=== PATIENT | female | born 1945 | race Caucasian/White ===

== ENCOUNTER 2019-11-19 18:32 | Emergency (ER) | payer MEDICARE ==
[~2019-11-19] VITALS: Ht 167.6 cm; Wt 113.4 kg
--- OUTSIDE RECORDS SUMMARY | 2019-11-19 18:33 | XMS REPORT | Clinical Summary ---
Author Author [facility] Organization [facility] Address Unknown Phone Unavailable Care Team Providers Care Envelope Machine Adjuster Name Role Phone Asked, No Pcp PCP Unavailable Allergies Comments Active Allergy Reactions Severity Noted Date Adhesive Tape-Silicones Swelling 05/24/2016 Wool Rash Low 05/24/2016 Medications End Date Status Medication Sig Dispensed Refills Start Date Active losartan (COZAAR) 50 MG Take 50 mg by 0 tablet mouth daily. Active metoprolol succinate XL Take 50 mg by 0 (TOPROL-XL) 50 mg 24 hr mouth daily. tablet Active levothyroxine (SYNTHROID, Take 100 mcg 0 LEVOXYL) 100 mcg tablet by mouth every morning. Active simvastatin (ZOCOR) 20 MG Take 20 mg by 0 tablet mouth nightly. Active FOLIC Take 1 tablet 0 ACID/MULTIVIT-MIN/LUTEIN by mouth (CENTRUM SILVER ORAL) daily. Active ascorbic acid, vitamin C, Take 500 mg 0 (VITAMIN C) 500 MG tablet by mouth 2 (two) times a day. Active glucosamine sulfate Take 1 tablet 0 (GLUCOSAMINE) 500 mg by mouth 2 tablet (two) times a day. Active amIODarone (PACERONE) 200 Take 200 mg 0 MG tablet by mouth daily. Active oxybutynin XL (DITROPAN Take 15 mg by 0 XL) 15 MG 24 hr tablet mouth daily. Active ranolazine (RANEXA) 500 Take 500 mg 0 MG 12 hr ER tablet by mouth 2 (two) times a day. Active cholecalciferol, vitamin Take 2,000 0 D3, (VITAMIN D3) 2,000 Units by unit capsule capsule mouth daily. Active biotin 10,000 mcg capsule Take by mouth 0 daily. Active cranberry fruit extract Take by mouth 0 (THERACRAN ORAL) daily. Active loratadine (CLARITIN) 10 Take 10 mg by 0 mg tablet mouth daily. Active Problems Problem Noted Date Atypical atrial flutter 05/24/2016 Family History Medical History Relation Name Comments Stroke Father Diabetes type II Mother Multiple myeloma Sister Relation Name Status Comments Father Mother Sister Social History Date Tobacco Use Types Packs/Day Years Used Never Smoker Smokeless Tobacco: Never Used Drinks/Week oz/Week Comments Alcohol Use 1 Glasses of wine 1 Cans of beer 2.0 1 or 2 a month Yes Sex Assigned at Date Recorded Not on file Industry Job Start Date Occupation Not on file Not on file Not on file Travel End Travel History Travel Start No recent travel history available. Last Filed Vital Signs Not on file Plan of Treatment Health Maintenance Due Date Last Done Comments COLONOSCOPY SCREENING 1997 65+ PNEUMOCOCCAL VACCINE 2012 03/08/2013 (2 of 2 - PPSV23) SHINGLES VACCINES (#2) 05/08/2013 03/08/2013 BREAST CANCER SCREENING 03/14/2014 03/14/2012, 02/29/2012, 10/07/2010, Additional history exists INFLUENZA VACCINE 01/12/2020 03/13/2017, 03/29/2014, 02/27/2014, Additional history exists Implants Device Identifier Shelf Expiration Date Model / Serial / L ot Implanted Type Area Manufactur er 12/24/2018 LINQSYS / / [id number] System Reveal Linq W/Monitors - Cardiac N/A: N/A [employer] [id number] Pacemakers CARDIAC Implanted: 01/30/2018 at [facility] and [facility] (Quantity not on file) Related DISEAS E Products MGMT Results Not on fileafter 11/18/2018 Insurance Type Payer Benefit Subscriber ID Effective Phone Address Plan / Dates Group Medicare MEDICARE MEDICARE xxxxxxxxxx 2012- [place], PART A AND Present [place] B Advance Directives For more information, please contact: [phone] Patient Anesthetist Explanation Type Date Recorded Advance Directives, 07/30/2010 10:41 AM Living Will and Medical Power of Bath Design Sales Consultant
--- OUTSIDE RECORDS SUMMARY | 2019-11-19 18:34 | XMS REPORT | Clinical Summary ---
Author Author [facility] Organization [facility] Address Unknown Phone Unavailable Care Team Providers Care Flower Cutter Name Role Phone Clinic, [facility] PCP Unavailable Allergies Comments Active Allergy Reactions Severity Noted Date ekg leads Adhesive Rash Low 06/17/2014 Clove Anaphylaxis High 08/01/2015 Clove Oil 08/01/2015 Rapid heartbeat greater than 200bpm Rapid heartbeat greater than 200bpm Venlafaxine Other (See 08/01/2015 Comments) Wool Rash Low 05/24/2016 Medications End Date Status Medication Sig Dispensed Refills Start Date Active levothyroxine (SYNTHROID, Take 100 mcg 0 LEVOTHROID) 100 MCG by mouth as tablet directed 6 days a week, skip on Sundays.. Active losartan (COZAAR) 50 MG Take 50 mg by 0 tablet mouth every evening . Active oxybutynin (DITROPAN-XL) Take 10 mg by 0 10 MG 24 hr tablet mouth daily. Active calcium carbonate-vitamin Take 1 tablet 0 D3 (CALCIUM-VITAMIN D) by mouth 2 500 mg(1,250mg) -200 unit (two) times per tablet daily with breakfast and dinner. Active glucosamine-chondroitin Take 1 tablet 0 500-400 mg tablet by mouth 2 (two) times daily . Active simvastatin (ZOCOR) 20 MG Take 20 mg by 0 tablet mouth nightly. Active ascorbic acid (ASCORBIC Take 500 mg 0 ACID WITH DOM HIPS) 500 by mouth MG tablet daily. Active multivitamin capsule Take 1 0 capsule by mouth daily. Active apixaban (ELIQUIS) 5 mg Take 5 mg by 0 Tab tablet mouth 2 (two) times daily. Active fluticasone (FLOVENT HFA) Inhale 2 0 110 mcg/actuation inhaler puffs by mouth via inhaler every 12 (twelve) hours as needed. Active loratadine (CLARITIN) 10 Take 10 mg by 0 mg tablet mouth daily as needed for Allergies. Active amiodarone (PACERONE) 100 Take 100 mg 0 MG tablet by mouth every other day. Active ranolazine (RANEXA) 500 Take 500 mg 0 MG 12 hr tablet by mouth 2 (two) times daily. Active metoprolol (TOPROL-XL) 50 Take 50 mg by 0 MG 24 hr tablet mouth every morning. Active cholecalciferol, vitamin Take 5,000 0 D3, (VITAMIN D3 ORAL) Units by mouth daily. Active multivitamin (THERAGRAN) Take 1 tablet 0 tablet by mouth daily For Urinary Tract . Active biotin 10,000 mcg Cap Take by mouth 0 daily. Active vitamin E acetate Take by 0 (VITAMIN E ORAL) mouth. Active cranberry fruit extract Take by 0 (CRANBERRY EXTRACT ORAL) mouth. Active Problems Problem Noted Date Orthostatic hypotension 09/22/2017 Atrial fibrillation with RVR 09/22/2017 Carpal tunnel syndrome 06/17/2014 Social History Date Tobacco Use Types Packs/Day Years Used Never Smoker Smokeless Tobacco: Never Used Alcohol Use Drinks/Week oz/Week Comments Yes Rarely Alcohol Habits Answer Date Recorded How often do you have a drink containing alcohol? Never 08/29/2018 How many drinks containing alcohol do you have on No t asked a typical day when you are drinking? How often do you have six or more drinks on one Not asked occasion? Sex Assigned at Date Recorded Not on file Industry Job Start Date Occupation Not on file Not on file Not on file Travel End Travel History Travel Start No recent travel history available. Last Filed Vital Signs Not on file Plan of Treatment Not on file Results Not on fileafter 11/18/2018 Insurance Payer Benefit Subscriber ID Type Phone Address Plan / Group MEDICARE MEDICARE A xxxxxxxxxx Medicare B MEDICARE MEDICARE A xxxxxxxxxxx Medicare B [phone] [id number] [facility] [place] [address] Advance Directives For more information, please contact: [facility] [address] [place] [address] Date Inactivated Comments Code Status Date Activated 09/23/2017 5:11 PM Full Code 09/22/2017 2:39 PM This code status was determined by: Patient 06/17/2014 1:53 PM Full Code 06/17/2014 7:25 AM This code status was determined by: Patient
--- OUTSIDE RECORDS SUMMARY | 2019-11-19 18:34 | XMS REPORT | Summary of Care ---
Author Author [facility] Organization [facility] Address Unknown Phone Unavailable Care Team Providers Care Dye Operator Name Role Phone Neva Ashton MD Unavailable Facundo Valentin Unavailable Neva Ashton MD Unavailable Susana Mckay DO Unavailable Unavailable Dwight Salgado 53 Sigifredo Isaac MD PCP Reason for Referral * Consult, Test & Treat (Routine) Referred By Contact Referred To Contact Status Reason Specialty Diagnoses / Procedures Angie Forte, CARRI-C [address] [address] Pending Orthopedic Diagnoses Surgery Primary osteoarthritis of left knee P rocedures GEL ONE PROC INJ Reason for Visit * Reason Comments Knee Pain Encounter Details Care Team Description Date Type Department Presley Wild MD [address] [id number] Knee Pain 07/30/2019 Office Visit [facility] Orthopedic Surgery [address] [facility] [place], [place] [address] Allergies Comments Active Allergy Reactions Severity Noted Date Adhesive 08/01/2015 Clove Oil 08/01/2015 Dust 08/25/2017 Other 08/01/2015 Rapid heartbeat greater than 200bpm Venlafaxine Other (See 08/01/2015 Comments) Wool Rash Low 05/24/2016 documented as of this encounter (statuses as of 07/30/2019) Medications End Date Status Medication Sig Dispensed Refills Start Date Active MULTIVITAMINS PO TABS 1qd 0 08/10/19 0 7 Active simvastatin (ZOCOR) 20 MG Take 20 mg by 0 tablet mouth every evening. Active ascorbic acid 500 MG Take 500 mg 0 tabletIndications: Visual by mouth two field defect, Herpes times daily. zoster Active Glucosamine-Chondroitin Take 500 mg 0 (GLUCOSAMINE CHONDR by mouth two COMPLEX OR)Indications: times daily. Visual field defect, Herpes zoster Active losartan (COZAAR) 50 MG Take 50 mg by 0 tablet mouth daily. Active Calcium Carbonate-Vitamin Take 2 0 D (CALCIUM + D OR) tablets by mouth daily. Active Apixaban (ELIQUIS) 5 MG Take 5 mg by 0 TABS mouth two times daily. Active Biotin 1 MG CAPS Take by 0 mouth. Active Cranberry (THERACRAN ONE Take by 0 OR) mouth. Active Vitamin E 100 UNIT/GM Apply 0 CREA topically. Active PROAIR HFA 0 Active fluticasone-salmeterol Inhale 1 Puff 1 Each 1 1 (ADVAIR DISKUS) 250-50 by mouth 8 MCG/DOSE every 12 inhalerIndications: Acute hours. bronchitis, unspecified REGULARLY to organism PREVENT wheezing, rinse mouth with water after use Active albuterol 108 (90 base) Inhale 1-2 1 Inhaler 2 mcg/act inhaler Puffs by 8 mouth every 6 hours as needed for Wheezing. Active amiodarone (PACERONE) 200 Take 100 mg 0 09/11 MG tablet by mouth. 8 Active Ranolazine (RANEXA) 500 Take 500 mg 0 MG TB12 by mouth two times daily. Active oxybutynin (DITROPAN XL) Take 15 mg by 0 07/11 15 MG CR tablet mouth daily. 9 Active levothyroxine (SYNTHROID) Take 1 Tab by 90 Tab 3 100 MCG tablet mouth daily. 9 Active metoprolol (TOPROL-XL) 50 metoprolol 0 MG XL tablet succinate ER 50 mg tablet,extend ed release 24 hr Active Diclofenac Sodium Place 1 1 Bottle 0 07/30/19 2 (PENNSAID) 2 % application 0 SOLNIndications: Primary onto the skin osteoarthritis of left 2 times daily knee as needed. Status Hospital, Clinic, or Ordered Dose Route Frequency Start End Date Other Facility Date Administered Medication Ended methylPREDNISolone IX ONCE 07/30/19 acetate (DEPO-MEDROL) 40 20 0 MG/ML, lidocaine 1% (10 mg/mL), bupivacaine (MARCAINE) 0.5 %Indications: Primary osteoarthritis of left knee documented as of this encounter (statuses as of 07/30/2019) Active Problems Problem Noted Date Atrial fibrillation with RVR (HCCode) 09/22/2017 Orthostatic hypotension 09/22/2017 History of breast cancer in female 08/25/2017 Atrophic vaginitis 05/28/2016 Hypertensive disorder 03/19/2016 History of urinary tract infection 08/28/2015 Urge incontinence of urine 07/15/2015 Coagulation disorder (HCCode) 03/09/2013 Overview: - PT and PTT prolonged Hyperglycemia 03/09/2013 History of heart attack 08/20/2009 Overview: 07/03/09 - went to [facility] ER - had a cute pulmonary edema. Had AFib but converted to normal rhythm prior to boo ctroconversion. In [facility] - catheterization - very mil d blockage, no stents or intervention. Hypothyroidism 04/01/2009 History of atrial fibrillation 08/10/2006 Overview: Sees cardiology. Stress test through t hem. H/o conversion ~2003 and then ~2006 HYPERLIPIDEMIA 12/08/2004 ASTHMA 06/27/2003 Obesity 06/13/1984 documented as of this encounter (statuses as of 07/30/2019) Resolved Problems Problem Noted Date Resolved Date Anisocoria 10/25/2011 08/25/2017 Iritis 10/25/2011 08/25/2017 BACK PAIN, LUMBAR 01/17/2004 08/25/2017 Thyrotoxicosis 10/16/2002 08/25/2017 Overview: Hyperthyroidism - 2002. Was on methima zole for 6 mo, no radiology txt. Just followed closely. Sciatica 11/28/2000 08/25/2017 documented as of this encounter (statuses as of 07/30/2019) Immunizations Name Administration Dates Next Due Influenza (whole) 03/29/2014, 02/27/2014, , 02/20/2009, 05/22/2008 Influenza Hd 02/19/2019, 03/17/2018, , 03/13/2017 Influenza Quad-PF 03/27/2018 Influenza whole 03/08/2013, 05/28/2011 Pneumococcal 13-valent 07/05/2018 Conjugate Vaccine Pneumococcal 05/18/2018, 03/08/2013 Polysaccharide Td 08/19/2014, 09/02/2004 Zoster Live 03/08/2013 documented as of this encounter Social History Date Tobacco Use Types Packs/Day Years Used Never Smoker Smokeless Tobacco: Never Used Drinks/Week oz/Week Comments Alcohol Use 1 Standard drinks or equivalent 1.0 Yes Sex Assigned at Date Recorded Not on file Industry Job Start Date Occupation Not on file Not on file Not on file Travel End Travel History Travel Start No recent travel history available. documented as of this encounter Last Filed Vital Signs Reading Time Taken Comments Vital Sign - - Blood Pressure - - Pulse - - Temperature - - Respiratory Rate - - Oxygen Saturation - - Inhaled Oxygen Concentration 113.4 kg (250 lb) 07/30/2019 1:01 PM RIPSAW GRADER Weight 167.6 cm (5' 6") 07/30/2019 1:01 PM RIPSAW GRADER Height 40.35 07/30/2019 1:01 PM RIPSAW GRADER Body Mass Index documented in this encounter Progress Notes * Angie Forte, CARRI-Dung - 07/30/2019 1:00 PM RIPSAW GRADER The patient presents for follow up on Her left knee for left OA. The patient follows with Dr. Wild. Last CSI was 05/01, which gave her abou t 2.5 months of relief. she denies fevers, chills, falls or trauma. Procedure Note Verbal consent for left injection was obtained; the procedure was explained and the patients' questions were answered. The patient's knee was palpated at the anterior lateral joint line. The skin was cleaned and prepped in the usual sterile manner. The knee was then injected through the anesthetized area with 2cc of 1% lidocain e, 2cc of 0.5% marcaine and 2 cc of 40 mg depo-medrol intra-articularly into the knee joint. Once the injection was complete the needle was withdrawn and pressu re was applied to the area with a sterile bandage until all bleeding had stopped . A bandaid was applied over the injection site using sterile technique. The procedure was repeated on the opposite side. The patient tolerated the procedure well without any apparent complications or p roblems. she was able to leave the clinic ambulating full weight bearing with a normal gait. she is aware to ice, rest and elevate her knees for 72 hours. May take OTC for p ain relief. she is aware she can have CSI injections every 3-4 months. Did discuss ordering Meloxicam for the patient, however she is on eliquis. Will order Pennsaid through [facility]. Also discussed ESCOBEDO injections, if she did not g et a full 3 months of relief. Patient was seen and examined with Dr. Wild, who is in agreement with the above stated plan. AW GRADER documented in this encounter Plan of Treatment Order Schedule Name Type Priority Associated Diag noses 1 Occurrences starting 07/30/2019 until 07/30/2020 GEL ONE PROC INJ Procedures Routine Primary osteo arthritis of left knee Health Maintenance Due Date Last Done Comments MEDICARE AWV (Initial) 12/12/2015 BMI FOLLOW UP PLAN 08/25/2018 08/25/2017 COLON CANCER SCREENIN09/01/2019 08/31/2018 COLONOSCOPY MAMMOGRAM ANNUAL 04/03/2020 04/03/2019, 019, 03/24/2018, Additional history exists FALL SCREEN 07/30/2020 07/30/2019 TETANUS SHOT (ADULT) 08/19/2024 08/19/2014, 09/02 HEPATITIS C SCREENING Completed 03/08/2013 OSTEOPOROSIS SCREENING Completed 04/05/2017 PNEUMOVAX >=65 (PPSV23) Completed 05/18/2018, PREVNAR >= 65 (PCV13) Completed 07/05/2018, 09/2018 FLU VACCINE > 6 MONTHS Completed 02/19/2019, , 03/24/2018, Additional history exists documented as of this encounter Results Not on filedocumented in this encounter Visit Diagnoses Diagnosis Primary osteoarthritis of left knee - P rimary Primary localized osteoarthrosis, lower leg documented in this encounter Administered Medications Action Date Dose Rate Site Medication Order MAR Action 07/30/2019 1:24 PM RIPSAW GRADER Left Kne e methylPREDNISolone acetate (DEPO-MEDROL) Given by 40 MG/ML, lidocaine 1% (10 mg/mL), bupivacaine (MARCAINE) 0.5 % Intra-articular, ONCE, 1 dose, 07/30/19 at 1315 documented in this encounter Insurance Type Payer Benefit Subscriber ID Effective Phone Address Plan / Dates Group Medicare MEDICARE MEDICARE xxxxxxxxxxx 2015-[id number] [place] [address] [phone] [facility] [place] [address] documented as of this encounter
--- OUTSIDE RECORDS SUMMARY | 2019-11-19 18:34 | XMS REPORT | Summary of Care ---
Author Author [facility] Organization [facility] Address Unknown Phone Unavailable Care Team Providers Care Lubrication Servicer Name Role Phone Neva Ashton MD Unavailable Facundo Valentin Unavailable Neva Ashton MD Unavailable Susana Mckay DO Unavailable Unavailable Dwight Salgado 53 Sigifredo Isaac MD PCP Reason for Visit * Reason Comments Injections Encounter Details Care Team Description Date Type Department Presley Wild MD [address] [place] [address] Injections 01/22/2019 Office Visit Department of Ortho pedic Surgery [address] [facility], [place] [address] Allergies Comments Active Allergy Reactions Severity Noted Date Adhesive 08/01/2015 Clove Oil 08/01/2015 Dust 08/25/2017 Other 08/01/2015 Rapid heartbeat greater than 200bpm Venlafaxine Other (See 08/01/2015 Comments) Wool Rash Low 05/24/2016 documented as of this encounter (statuses as of 01/22/2019) Medications End Date Status Medication Sig Dispensed [...] tablet mouth daily. Active Calcium Carbonate-Vitamin Take 1 tablet 0 D (CALCIUM + D OR) by mouth daily. Active Apixaban (ELIQUIS) 5 [...] 50 mg tablet,extend ed release 24 hr 01/22/2019 Discontinued Metoprolol-Hydrochlorothi Take by 0 azide (METOPROLOL-HCTZ ER mouth. OR) 01/22/2019 Discontinued Na Sulfate-K Sulfate-Mg Take as 354 mL 1 Sulf (SUPREP BOWEL PREP directed 9 KIT) 17.5-3.13-1.6 GM/177ML SOLNIndications: Screen for colon cancer 01/22/2019 Discontinued amoxicillin-clavulanate amoxicillin 0 (AUGMENTIN) 500-125 MG 500 per tablet mg-potassium clavulanate 125 mg tablet 01/22/2019 Discontinued azithromycin (ZITHROMAX) azithromycin 0 250 MG tablet 250 mg tablet 01/22/2019 Discontinued doxycycline (VIBRA-TABS) doxycycline 0 100 MG tablet hyclate 100 mg tablet 01/22/2019 Discontinued conjugated estrogens 0.5 g. 0 (PREMARIN) vaginal cream 01/22/2019 Discontinued ketoconazole (NIZORAL) 2 ketoconazole 0 % cream 2 % topical cream 01/22/2019 Discontinued predniSONE (DELTASONE) 20 prednisone 20 0 MG tablet mg tablet 01/22/2019 Discontinued triamcinolone (KENALOG) triamcinolone 0 0.025 % cream acetonide 0.025 % topical cream Status Hospital, Clinic, or Ordered Dose Route Frequency Start End Date Other Facility Date Administered Medication Ended methylPREDNISolone IX ONCE 01/23/20 acetate (DEPO-MEDROL) 40 19 9 MG/ML, lidocaine 1% (10 mg/mL), bupivacaine (MARCAINE) 0.25 %Indications: Primary osteoarthritis of left knee documented as of this encounter (statuses as of 01/22/2019) Active Problems Problem Noted Date Atrial fibrillation with RVR 09/22/2017 Orthostatic hypotension 09/22/2017 History of breast cancer in female 08/25/2017 Atrophic vaginitis 05/28/2016 Hypertensive disorder 03/19/2016 History of urinary tract infection 08/28/2015 Urge incontinence of urine 07/15/2015 Coagulation disorder 03/09/2013 Overview: - PT and PTT prolonged Hyperglycemia 03/09/2013 History of heart attack 08/20/2009 Overview: 07/03/09 - went to [facility] ER - had a cute pulmonary edema. Had AFib but converted to normal rhythm prior to boo ctroconversion. In [facility] - catheterization - very mil d blockage, no stents or intervention. Hypothyroidism 04/01/2009 History of atrial fibrillation 08/10/2006 Overview: Sees cardiology. Stress test through t hem. H/o conversion ~2003 and then ~2006 HYPERLIPIDEMIA 12/08/2004 ASTHMA 06/27/2003 Obesity 06/13/1984 documented as of this encounter (statuses as of 01/22/2019) Resolved Problems Problem Noted Date Resolved Date Anisocoria 10/25/2011 08/25/2017 Iritis 10/25/2011 08/25/2017 BACK PAIN, LUMBAR 01/17/2004 08/25/2017 Thyrotoxicosis 10/16/2002 08/25/2017 Overview: Hyperthyroidism - 2002. Was on methima zole for 6 mo, no radiology txt. Just followed closely. Sciatica 11/28/2000 08/25/2017 documented as of this encounter (statuses as of 01/22/2019) Immunizations Name Administration Dates Next Due Influenza (whole) 03/29/2014, 02/27/2014, , 02/20/2009, 05/22/2008 Influenza Hd 03/13/2017 Influenza Quad-PF 03/27/2018 Influenza whole 03/08/2013, 05/28/2011 Pneumococcal 13-valent 06/16/2018 Conjugate Vaccine Pneumococcal 03/08/2013 Polysaccharide Td 08/19/2014, 09/02/2004 Zoster Live 03/08/2013 documented as of this encounter Social History Date Tobacco Use Types Packs/Day Years Used Never Smoker Smokeless Tobacco: Never Used Drinks/Week oz/Week Comments Alcohol Use 1 Standard drinks or equivalent 0.6 Yes Sex Assigned at Date Recorded Not [...] Oxygen Saturation - - Inhaled Oxygen Concentration 108.4 kg (239 lb) 01/22/2019 8:23 AM CDT Weight 162.6 cm (5' 4") 01/22/2019 8:23 AM CDT Height 41.02 01/22/2019 8:23 AM CDT Body Mass Index documented in this encounter Progress Notes * Presley Wild MD - 01/22/2019 8:00 AM CDT History of present illness: The patient returns for a recheck. She has severe os teoarthritis of the left knee. She received a cortisone injection 3 months ago. This provided her with good temporary relief. She would like more injections to day. Physical examination: Unchanged. Following sterile prep and drape, her left knee was injected with lidocaine, Mar rene, and Depo-Medrol solution's. She tolerated the injection well. We can repe at the injection again in 3-4 months. She will contact me when she is ready for more. All of her questions were answered today. documented in this encounter Plan of Treatment Care Team Description Date Type Specialty Antonio Amin MD [address] [facility] 8th [address], [address] [place] [address] 04/13/2019 Office Visit Endocrinology Health Maintenance Due Date Last Done Comments MEDICARE AWV 1947 BMI FOLLOW UP PLAN 08/25/2018 08/25/2017 FLU VACCINE > 6 MONTHS 01/11/2019 03/27/2018, 05/2018, 03/13/2017, Additional history exists MAMMOGRAM ANNUAL 03/24/2019 03/24/2018, 017, 02/27/2014, Additional history exists COLON CANCER SCREENIN09/01/2019 08/31/2018, COLONOSCOPY FALL SCREEN 10/17/2019 01/22/2019 TETANUS SHOT (ADULT) 08/19/2024 08/19/2014, 09/02 HEPATITIS C SCREENING Completed 03/08/2013 PNEUMOVAX >=65 (PPSV23) Completed 03/08/2013 OSTEOPOROSIS SCREENING Completed 04/05/2017 PREVNAR >= 65 (PCV13) Completed 06/16/2018, 09/2018 documented as of this encounter Results Not on filedocumented in this encounter Visit Diagnoses Diagnosis Primary osteoarthritis of left knee - P rimary Primary localized osteoarthrosis, lower leg documented in this encounter Administered Medications Action Date Dose Rate Site Medication Order MAR Action 01/22/2019 9:19 AM CDT Left Kne e methylPREDNISolone acetate (DEPO-MEDROL) Given by 40 MG/ML, lidocaine 1% (10 mg/mL), bupivacaine (MARCAINE) 0.25 % Intra-articular, ONCE, 1 dose, 01/22/19 at 0830 documented in this encounter Insurance Type Payer Benefit Subscriber ID Effective Phone Address Plan / Dates Group Medicare MEDICARE MEDICARE xxxxxxxxxxx 2015-P [id number] [place] [phone] documented as of this encounter
--- OUTSIDE RECORDS SUMMARY | 2019-11-19 18:34 | XMS REPORT | Continuity of Care Document ---
Author Author [facility] t Organization [facility] Address [address] [place] [address] Phone Unavailable Care Team Providers Care Winder Fixer Name Role Phone [facility] PCP Unavailable Presley Wild MD Attphys Vanna Kline MD Attphys PATRICK ZAMORA MASTER Attphys Unavailable Rich PERDOMO Attphys Unavailable PATRICK ZAMORA MASTER Admphys Unavailable RICKY HOPKINS Admphys Unavailable Problems Condition Name Condition Details Condition Category Status Onset Date Resolution Date Last Treatment Date Treating Clinician Comments Source Orthostatic hypotension Orthostatic hypotension Disease Active 2017-09-22 00:00:00 [facility] Atrial fibrillation with RVR Atrial fibrillation with RVR Disease Active 2017-09-22 00:00:00 [facility] Atypical atrial flutter Atypical atrial flutter Disease Active 2016-05-24 00:00:00 [facility] Carpal tunnel syndrome Carpal tunnel syndrome Disease Active 2014-06-17 00:00:00 [facility] Allergies, Adverse Reactions, Alerts Allergy Name Allergy Type Status Severity Reaction(s) Onset Date Inacti ve Date Treating Clinician Comments Source Wool Propensity to adverse reactions Active Rash 2016-05-24 00 :00:00 [facility] Adhesive Tape-Silicones Propensity to adverse reactions to drug Act alondra Swelling 2016-05-24 00:00:00 [facility] Wool Propensity to adverse reactions to drug Active Rash 2016-05-24 00:00:00 Alan Price Clove Propensity to adverse reactions Active Anaphyla xis 2015-08-01 00:00:00 [facility] Clove Oil Propensity to adverse reactions Active 2015-08-01 00:00:00 [facility] Venlafaxine Propensity to adverse reactions Active Oth er (See Comments) 2015-08-01 00:00:[address] than 200bpmRapid heartbeat greater than 200bpm [facility] Adhesive Propensity to adverse reactions Active Rash 2014-06 00:00:00 ekg leads [facility] Family History Family Member Diagnosis Comments Start Date Stop Date Source Natural father Stroke [facility] thodi Natural mother Diabetes type II Hous kulwant Amish Natural sister Multiple myeloma Kashif blum Amish Social History Social Habit Start Date Stop Date Quantity Comments Source History SDOH Alcohol Std Drinks [facility] History SDOH Alcohol Binge [facility] Sex Assigned At Kaylah rendonissa Price History SDOH Alcohol Frequency 2018-08-29 00:00:00 2018-08-29 00:00:0 0 1 [facility] Alcohol intake 2018-02-01 00:00:00 2018-02-01 00:00:00 Current drinker of alcohol (finding) Alan Price Alcohol Comment 2016-05-24 00:00:00 2016-05-24 00:00:00 1 or 2 a jaciel h Alan Price Smoking Status Start Date Stop Date Source Never smoker Alan chatterjee Medications Ordered Medication Name Filled Medication Name Start Date Stop Da te Current Medication? Ordering Clinician Indication Dosage Frequency Signature (SIG) Comments Components Source cranberry fruit extract (CRANBERRY EXTRACT ORAL) 2018-08-31 12:41:11 Yes Take by mouth. [facility] vitamin E acetate (VITAMIN E ORAL) 2018-08-31 12:41:10 Yes Take by mouth. [facility] losartan (COZAAR) 50 MG tablet 2018-08-29 09:12:37 Yes 50mg QD Take 50 mg by mouth every evening . [facility] multivitamin (THERAGRAN) tablet 2018-08-29 09:12:37 Yes 1{tbl} QD Take 1 tablet by mouth daily For Urinary Tract . [facility] biotin 10,000 mcg Cap 2018-08-29 09:12:37 Yes QD Take [facility] 500 MG 12 hr tablet 2018-08-29 09:12:36 Yes 500mg Q.5D Take 500 mg by mouth 2 (two) times daily. [facility] metoprolol (TOPROL-XL) 50 MG 24 hr tablet 2018-08-29 09:12:36 Yes 50mg QD Take 50 mg by mouth every morning. [facility] cholecalciferol, vitamin D3, (VITAMIN D3 ORAL) 2018-08-29 09:12: 36 Yes 5000U QD Take 5,000 Units by mouth daily. [facility] amiodarone (PACERONE) 100 MG tablet 2018-08-29 09:08:47 Yes 100mg Take 100 mg by mouth every other day. [facility] losartan (COZAAR) 50 MG tablet 2018-01-30 15:46:32 Yes 50mg QD Take 50 mg by mouth daily. Alan Price metoprolol succinate XL (TOPROL-XL) 50 mg 24 hr tablet 2018-01-30 15:46:32 Yes 50mg QD Take 50 mg by mouth daily. Alan Price levothyroxine (SYNTHROID, LEVOXYL) 100 mcg tablet 2018-01-30 15:46:32 Yes 100ug QD Take 100 mcg by mouth every morning. Alan Price simvastatin (ZOCOR) 20 MG tablet 2018-01-30 15:46:32 Yes 20mg QD Take 20 mg by mouth nightly. Alan Price FOLIC ACID/MULTIVIT-MIN/LUTEIN (CENTRUM SILVER ORAL) 2 15:46:32 Yes 1{tbl} QD Take 1 tablet by mouth daily. Alan Price ascorbic acid, vitamin C, (VITAMIN C) 500 MG tablet 01-30 15:46:32 Yes 500mg Q.5D Take 500 mg by mouth 2 (two) times a day . Alan Price glucosamine sulfate (GLUCOSAMINE) 500 mg tablet 2018-01-30 15:46 :32 Yes 1{tbl} Q.5D Take 1 tablet by mouth 2 (two) times a day. Alan Price amIODarone (PACERONE) 200 MG tablet 2018-01-30 15:46:32 Yes 200mg QD Take 200 mg by mouth daily. Alan gonzales oxybutynin XL (DITROPAN XL) 15 MG 24 hr tablet 2018-01-30 15:46: 32 Yes 15mg QD Take 15 mg by mouth daily. Ev Price ranolazine (RANEXA) 500 MG 12 hr ER tablet 2018-01-30 15:46:32 Yes 500mg Q.5D Take 500 mg by mouth 2 (two) times a day. Alan Price cholecalciferol, vitamin D3, (VITAMIN D3) 2,000 unit capsule capsule 2018-01-30 15:46:32 Yes 2000U QD Take 2,000 Units b y mouth daily. Alan Price biotin 10,000 mcg capsule 2018-01-30 15:46:32 Yes QD Take by mouth daily. Alan Price cranberry fruit extract (THERACRAN ORAL) 2018-01-30 15:46:32 Yes QD Take by mouth daily. Alan Price loratadine (CLARITIN) 10 mg tablet 2018-01-30 15:46:32 Yes 10mg QD Take 10 mg by mouth daily. Alan Price loratadine (CLARITIN) 10 mg tablet 2017-09-22 13:53:18 Yes 10mg Take 10 mg by mouth daily as needed for Allergies. [facility] levothyroxine (SYNTHROID, LEVOTHROID) 100 MCG tablet 2 13:52:41 Yes 100ug Take 100 mcg by mouth as directed 6 days a week, skip on Sundays.. [facility] glucosamine-chondroitin 500-400 mg tablet 2017-09-22 13:52:41 Yes 1{tbl} Q.5D Take 1 tablet by mouth 2 (two) times daily . [facility] fluticasone (FLOVENT HFA) 110 mcg/actuation inhaler 09-22 13:52:41 Yes 2{puff} Inhale 2 puffs b y mouth via inhaler every 12 (twelve) hours as needed. [facility] apixaban (ELIQUIS) 5 mg Tab tablet 2017-09-22 11:55:26 Yes 5mg Q.5D Take 5 mg by mouth 2 (two) times daily. [facility] ascorbic acid (ASCORBIC ACID WITH DOM HIPS) 500 MG tablet 2014-06-17 08:13:27 Yes 500mg QD Take 500 mg by mouth daily. [facility] multivitamin capsule 2014-06-17 08:13:27 Yes 1{capsule} QD Take 1 capsule by mouth daily. [facility] simvastatin (ZOCOR) 20 MG tablet 2014-06-17 07:41:29 Yes 20mg QD Take 20 mg by mouth nightly. [facility] oxybutynin (DITROPAN-XL) 10 MG 24 hr tablet 2014-06-17 07:41:28 Yes 10mg QD Take 10 mg by mouth daily. [facility] calcium carbonate-vitamin D3 (CALCIUM- TAMIN D) 500 mg(1,250mg) -200 unit per tablet 2014-06-17 07:41:28 Yes 1{tbl} Take 1 tablet by mouth 2 (two) times daily with breakfast and dinner. [facility] Procedures This patient has no known procedures. Plan of Care Planned Activity Planned Date Details Comments Source Future Scheduled Test 2020-01-12 00:00:00 INFLUENZA VACCINE [code = INFLUENZA VACCINE] [facility] Scheduled Test 2014-03-14 00:00:00 BREAST CANCER SCRE ENING [code = BREAST CANCER SCREENING] [facility] Scheduled Test 2013-05-08 00:00:00 SHINGLES VACCINES (#2) [code = SHINGLES VACCINES (#2)] [facility] Scheduled Test 2012 00:00:00 65+ PNEUMOCOCCAL V ACCINE (2 of 2 - PPSV23) [code = 65+ PNEUMOCOCCAL VACCINE (2 of 2 - PPSV23)] [facility] Scheduled Test 1997 00:00:00 COLONOSCOPY SCREEN ING [code = COLONOSCOPY SCREENING] [facility] Encounters Start Date/Time End Date/Time Encounter Type Admission Type Attendi [facility] Care Department Encounter ID Source 2019-07-30 12:57:16 2019-07-30 13:17:16 Office Visit Presley Zepeda [facility] [id number] 2019-03-08 07:55:40 2019-03-08 08:25:40 Office Visit Vanna Kline [facility] [id number] 2019-01-22 08:00:08 2019-01-22 09:23:48 Office Visit Presley Zepeda [facility] [id number] Results Test Description Test Time Test Comments Results Result Comments Source TISSUE EXAM 2018-09-05 15:27:00 Surgical Pat hology Report Case: [id number] Authorizing Provider: Master Zamora, Collected: 08/31/2018 1542 Ordering Location: [facility] Received: 08/31/2018 1712 SERVICES Pathologist: Alma Rosa Melo MD Specimens: A) - Polyp, Colon - Transverse, X4 B) - Polyp, Colon - Left/Descending A. TRANSVERSE COLON POLYP X4, POLYPECTOMIES - THREE LARGE POLYPOID FRAGMENTS OF TUBULAR ADENOMA WITH FOCAL SURFACE HIGH GRADE DYSPLASIA - CAUTERIZED EDGE NEGATIVE FOR DYSPLASIA - TWO FRAGMENT WITH TUBULAR ADENOMA B. LEFT DESCENDING COLON POLYP, BIOPSY: - TUBULAR ADENOMA Signing Pathologist Direct Phone Line: [phone] signed by Alma Rosa Melo MD on 09/05/2018 at 3:27 PMEndoscopic report reviewed./[id number] for colon cancer A. Transverse colon polyp. B. Left descending colon polyp Specimen is received in two containers of formalin both labeled with the patient's information.Specimen A: Labeled transverse colon polyp x4" consists of three distinct dudley polyps ranging from 0.5 to 1.5 cm and a smaller fragment of tissue measuring 0.2 cm with multiple debris. The larger polyps are inked at the resection margin, bisected, and the tissue is entirely submitted as follows: A1, smaller fragment and debris; A2-A4, remainder of polyps.Specimen B: Labeled "left descending colon polyp" consists of a 0.6 cm fragment of dudley tissue submitted entirely in B1. CG/ew Performed BASIC METABOLIC PANEL 2017-09-23 07:08:00 Test Item SODIUM (BEAKER) (test code = 381) 143 meq/L 136-145 POTASSIUM (BEAKER) (test code = 379) 3.9 meq/L 3.5-5.1 CHLORIDE (BEAKER) (test code = 382) 115 meq/L 98-107 H CO2 (BEAKER) (test code = 355) 21 meq/L 22-29 L BLOOD UREA NITROGEN (BEAKER) (test code = 354) 9 mg/dL 7-21 CREATININE (BEAKER) (test code = 358) 0.64 mg/dL 0.57-1.25 GLUCOSE RANDOM (BEAKER) (test code = 652) 96 mg/dL 70-105 CALCIUM (BEAKER) (test code = 697) 8.8 mg/dL 8.4-10.2 EGFR (BEAKER) (test code = 1092) 92 mL/min/1.73 sq m ESTIMATED GFR IS NOT ACCURATE CREATININE CLEARANCE IN PREDICTING GLOMERULAR FILTRATION RATE. ESTIMATED GFR IS NOT APPLICABLE FOR DIALYSIS PATIENTS. CREATINE KINASE (CK), TOTAL AND [id number] 07:08:00* Test Item Value Reference Range Interpretation Comments CREATINE KINASE TOTAL (BEAKER) (test code = 380) 46 U/L 29-20 0 CREATINE KINASE-MB (BEAKER) (test code = 750) 1.3 ng/mL 0.0-6.6 CREATINE KINASE-MB INDEX (BEAKER) (test code = 395) 2.8 % CK-MB Reference Range:<6.7 Normal6.7-10.0 Borderline>10.0 Abnormal TROPONIN [id number] 07:04:00* Test Item Value Reference Range Interpretation Comments TROPONIN I (BEAKER) (test code = 397) 0.05 ng/mL 0.00-0.03 H Troponin I (TnI) levels must be interpreted in the context of the presenting sym ptoms and the clinical findings. Elevated TnI levels indicate myocardial damage, but are not specific for ischemic heart disease. Elevated TnI levels are seen in patients with other cardiac conditions (including myocarditis and congestive h eart failure), and slight TnI elevations occur in patients with other conditions , including sepsis, renal failure, acidosis, acute neurological disease, and per sistent tachyarrhythmia.TSH/FREE T4 IF [id number] 19:21:00* Test Item Value Reference Range Interpretation Comments THYROID STIMULATING HORMONE (RONAKER) (test code = 772) 1.17 uIU/mL 0.35-4.94 CREATINE KINASE (CK), TOTAL AND [id number] 19:06:00* Test Item Value Reference Range Interpretation Comments CREATINE KINASE TOTAL (BEAKER) (test code = 380) 54 U/L 29-20 0 CREATINE KINASE-MB (BEAKER) (test code = 750) 1.4 ng/mL 0.0-6.6 CREATINE KINASE-MB INDEX (BEAKER) (test code = 395) 2.6 % CK-MB Reference Range:<6.7 Normal6.7-10.0 Borderline>10.0 Abnormal TROPONIN [id number] 19:06:00* Test Item Value Reference Range Interpretation Comments TROPONIN I (RONAKER) (test code = 397) 0.06 ng/mL 0.00-0.03 H Troponin I (TnI) levels must be interpreted in the context of the presenting sym ptoms and the clinical findings. Elevated TnI levels indicate myocardial damage, but are not specific for ischemic heart disease. Elevated TnI levels are seen in patients with other cardiac conditions (including myocarditis and congestive h eart failure), and slight TnI elevations occur in patients with other conditions , including sepsis, renal failure, acidosis, acute neurological disease, and per sistent tachyarrhythmia.B-TYPE NATRIURETIC FACTOR (BNP)2017-09-22 13:34:00* Test Item Value Reference Range Interpretation Comments B-TYPE NATRIURETIC PEPTIDE (DAVID) (test code = 700) 566 pg/mL 0-100 H RAD, CHEST, 1 VIEW, NON [id number] 13:05:00Reason for exam:->TACHYCARDIA FINAL REPORT INDICATION: TACHYCARDIA COMPARISON: None. TE CHNIQUE: Chest radiograph, single view, portable technique. FINDINGS / IMPRESSIO N: Prominent heart shadow, cardiac monitoring device, and pulmonary venous conge stion demonstrated. Questionable lower lung reticular opacities, may represent s ubsegmental atelectasis, aspiration, or pneumonia. No pneumothorax or pleural ef fusion demonstrated. Osseous structures unremarkable. Signed: Wilmar Lea Verified Date/Time: 09/22/2017 13:05:51 Reading Location: [facility] Room Electronically signed by: WILMAR LEA M.D. on 8 01:05 PM CREATINE KINASE (CK), TOTAL AND [id number] 12:44:00* Test Item Value Reference Range Interpretation Comments CREATINE KINASE TOTAL (BEAKER) (test code = 380) 69 U/L 29-20 0 CREATINE KINASE-MB (BEAKER) (test code = 750) 1.3 ng/mL 0.0-6.6 CREATINE KINASE-MB INDEX (BEAKER) (test code = 395) 1.9 % CK-MB Reference Range:<6.7 Normal6.7-10.0 Borderline>10.0 Abnormal TROPONIN [id number] 12:44:00* Test Item Value Reference Range Interpretation Comments TROPONIN I (BEAKER) (test code = 397) 0.01 ng/mL 0.00-0.03 Troponin I (TnI) levels must be interpreted in the context of the presenting sym ptoms and the clinical findings. Elevated TnI levels indicate myocardial damage, but are not specific for ischemic heart disease. Elevated TnI levels are seen in patients with other cardiac conditions (including myocarditis and congestive h eart failure), and slight TnI elevations occur in patients with other conditions , including sepsis, renal failure, acidosis, acute neurological disease, and per sistent tachyarrhythmia.[id number] 12:43:00* Test Item Value Reference Range Interpretation Comments MAGNESIUM (BEAKER) (test code = 627) 2.0 mg/dL 1.6-2.6 BASIC METABOLIC [id number] 12:43:00* Test Item Value Reference Range Interpretation Comments SODIUM (BEAKER) (test code = 381) 144 meq/L 136-145 POTASSIUM (BEAKER) (test code = 379) 4.0 meq/L 3.5-5.1 CHLORIDE (BEAKER) (test code = 382) 112 meq/L 98-107 H CO2 (BEAKER) (test code = 355) 23 meq/L 22-29 BLOOD UREA NITROGEN (BEAKER) (test code = 354) 9 mg/dL 7-21 CREATININE (BEAKER) (test code = 358) 0.72 mg/dL 0.57-1.25 GLUCOSE RANDOM (BEAKER) (test code = 652) 92 mg/dL 70-105 CALCIUM (BEAKER) (test code = 697) 9.4 mg/dL 8.4-10.2 EGFR (BEAKER) (test code = 1092) 80 mL/min/1.73 sq m ESTIMATED GFR IS NOT ACCURATE CREATININE CLEARANCE IN PREDICTING GLOMERULAR FILTRATION RATE. ESTIMATED GFR IS NOT APPLICABLE FOR DIALYSIS PATIENTS. CBC W/PLT COUNT & AUTO [id number] 12:39:00* Test Item Value Reference Range Interpretation Comments WHITE BLOOD CELL COUNT (BEAKER) (test code = 775) 5.4 K/ L 3.5- 10.5 RED BLOOD CELL COUNT (BEAKER) (test code = 761) 4.24 M/ L 3.93-5 .22 HEMOGLOBIN (BEAKER) (test code = 410) 13.5 GM/DL 11.2-15.7 HEMATOCRIT (BEAKER) (test code = 411) 41.5 % 34.1-44.9 MEAN CORPUSCULAR VOLUME (BEAKER) (test code = 753) 97.9 fL 79. 4-94.8 H MEAN CORPUSCULAR HEMOGLOBIN (BEAKER) (test code = 751) 31.8 pg 25.6-32.2 MEAN CORPUSCULAR HEMOGLOBIN CONC (BEAKER) (test code = 752) 32.5 GM/DL 32.2-35.5 RED CELL DISTRIBUTION WIDTH (BEAKER) (test code = 412) 13.7 % 11.7-14.4 PLATELET COUNT (BEAKER) (test code = 756) 219 K/CU MM 150-450 MEAN PLATELET VOLUME (BEAKER) (test code = 754) 11.8 fL 9.4-12 .3 NUCLEATED RED BLOOD CELLS (BEAKER) (test code = 413) 0 /100 WBC 0 -0 NEUTROPHILS RELATIVE PERCENT (BEAKER) (test code = 429) 63 % LYMPHOCYTES RELATIVE PERCENT (BEAKER) (test code = 430) 23 % MONOCYTES RELATIVE PERCENT (BEAKER) (test code = 431) 12 % EOSINOPHILS RELATIVE PERCENT (BEAKER) (test code = 432) 1 % BASOPHILS RELATIVE PERCENT (BEAKER) (test code = 437) 0 % NEUTROPHILS ABSOLUTE COUNT (BEAKER) (test code = 670) 3.39 K/ L 1.56-6.13 LYMPHOCYTES ABSOLUTE COUNT (BEAKER) (test code = 414) 1.25 K/ L 1.18-3.74 MONOCYTES ABSOLUTE COUNT (BEAKER) (test code = 415) 0.67 K/ L 0. 24-0.36 H EOSINOPHILS ABSOLUTE COUNT (BEAKER) (test code = 416) 0.04 K/ L 0.04-0.36 BASOPHILS ABSOLUTE COUNT (BEAKER) (test code = 417) 0.02 K/ L 0. 01-0.08 IMMATURE GRANULOCYTES-RELATIVE PERCENT (BEAKER) (test code = 2801) 0 % 0-1 PT/[id number] 12:26:00* Test Item Value Reference Range Interpretation Comments PROTIME (BEAKER) (test code = 759) 15.8 seconds 11.7-14.7 H INR (BEAKER) (test code = 370) 1.3 <=5.9 PARTIAL THROMBOPLASTIN TIME (BEAKER) (test code = 760) 26.8 seconds 22.5-36.0 RECOMMENDED COUMADIN/WARFARIN INR THERAPY RANGESSTANDARD DOSE: 2.0 - 3.0 Inclu ganga: PROPHYLAXIS for venous thrombosis, systemic embolization; TREATMENT for simba ous thrombosis and/or pulmonary embolus.HIGH RISK: Target INR is 2.5-3.5 for pat ients with mechanical heart valves.POCT-LACTIC ACID, [id number] 12:16:00* Test Item Value Reference Range Interpretation Comments POC-LACTIC ACID, VENOUS (BEAKER) (test code = 2805) 1.1 mmol/L 0. 9-1.7 TESTED AT [facility] [address] [facility] [address]
--- OUTSIDE RECORDS SUMMARY | 2019-11-19 18:34 | XMS REPORT | Summary of Care ---
Author Author [facility] Organization [facility] Address Unknown Phone Unavailable Care Team Providers Care Wash Helper Name Role Phone Neva Ashton MD Unavailable Facundo Valentin Unavailable Neva Ashton MD Unavailable Susana Mckay DO Unavailable Unavailable Dwight Salgado 53 Sigifredo Isaac MD PCP Reason for Visit * Reason Comments Follow Up thyroid Encounter Details Care Team Description Date Type Department Vanna Kline MD [address] [place] [address] Follow Up (thyroid) 03/08/2019 Office Visit [facility] Endocrinology [address] 8th [address]; [address] [place] [address] Allergies Comments Active Allergy Reactions Severity Noted Date Adhesive 08/01/2015 Clove Oil 08/01/2015 Dust 08/25/2017 Other 08/01/2015 Rapid heartbeat greater than 200bpm Venlafaxine Other (See 08/01/2015 Comments) Wool Rash Low 05/24/2016 documented as of this encounter (statuses as of 03/08/2019) Medications End Date Status Medication Sig Dispensed [...] 50 mg tablet,extend ed release 24 hr documented as of this encounter (statuses as of 03/08/2019) Active Problems Problem Noted Date Atrial fibrillation with RVR (HCCode) 09/22/2017 Orthostatic hypotension 09/22/2017 History of breast cancer in female 08/25/2017 Atrophic vaginitis 05/28/2016 Hypertensive disorder 03/19/2016 History of urinary tract infection 08/28/2015 Urge incontinence of urine 07/15/2015 Coagulation disorder (HCCode) 03/09/2013 Overview: - PT and PTT prolonged Hyperglycemia 03/09/2013 History of heart attack 08/20/2009 Overview: 07/03/09 - went to [facility] ER - had a cute pulmonary edema. Had AFib but converted to normal rhythm prior to boo ctroconversion. In [facility] - catheterization - very mil d blockage, no stents or intervention. Hypothyroidism 04/01/2009 History of atrial fibrillation 08/10/2006 Overview: Sees cardiology. Stress test through t hem. H/o conversion ~2003 and then ~2006 HYPERLIPIDEMIA 12/08/2004 ASTHMA 06/27/2003 Obesity 06/13/1984 documented as of this encounter (statuses as of 03/08/2019) Resolved Problems Problem Noted Date Resolved Date Anisocoria 10/25/2011 08/25/2017 Iritis 10/25/2011 08/25/2017 BACK PAIN, LUMBAR 01/17/2004 08/25/2017 Thyrotoxicosis 10/16/2002 08/25/2017 Overview: Hyperthyroidism - 2002. Was on methima zole for 6 mo, no radiology txt. Just followed closely. Sciatica 11/28/2000 08/25/2017 documented as of this encounter (statuses as of 03/08/2019) Immunizations Name Administration Dates Next Due Influenza [...] Signs Reading Time Taken Comments Vital Sign 128/74 03/08/2019 7:57 AM CDT Blood Pressure 64 03/08/2019 7:57 AM CDT Pulse - - Temperature 18 03/08/2019 7:57 AM CDT Respiratory Rate - - Oxygen Saturation - - Inhaled Oxygen Concentration 110.2 kg (243 lb) 03/08/2019 7:57 AM CDT Weight 162.6 cm (5' 4") 03/08/2019 7:57 AM CDT Height 41.71 03/08/2019 7:57 AM CDT Body Mass Index documented in this encounter Progress Notes * Vanna Kline MD - 03/08/2019 8:00 AM CDT Patient: Cheryl Rock Age: 73 y.o. Sex: female Date: 03/08/2019 Clinic: Thyroid Clinic Time: 8:28 AM Chief Complaint: F/U Hypothyroidism HPI: 73 y.o. female H/o with afib (moniotroing device, Eliquis, sotalo l) , dyslipidemia on simvastatin, breast cancer (surgery, radiation, on anastroz ole), mild osteopenia ( followed by oncologist at [facility]), PENNY/hypoxia- not using CPAP well, hypothyroidism. Last seen in clinic 10/[address] Mckay and here for F/U. She was found to have hypothyroidism about 2008 (by her bank vault attendant who managed her Afib). She had hyperthyroidism before, probably s/p RAIA followed by many y ears of euthyroidism. She also has TPO+ She has restarted amiodarone since 09/2017. In 07/2017 levothyroxine dose was redu jus from 100 mcg daily to 100 mcg six days a week. She had TFTs done (Scanned media) in 06/2018-TSH was 4.1 and FT4 was 1.4. She the n self increased her levothyroxine dose to 100 mcg seven days a week. She takes it daily on empty stomach. Follow up TSH 2 in 10/2018, now latest is 3.38 with normal FT4 though Total T3 sl ightly low ( 58). She denies palpitations, diarrhea, constipation. No dry skin. Doing well. Does have an eye surgery ( lid surgery) coming up in a month and also cardiology appt. FH: positive for thyroid problems in sister and mother. PMH, SH, Meds: reviewed. Family History Problem Relation Name Age of Onset Diabetes Mother Glaucoma Maternal Grandmother Stroke Father Cancer Maternal Aunt Asthma Paternal Grandfather Cancer Sister melanoma Active Ambulatory Problems Diagnosis Date Noted Obesity 06/13/1984 ASTHMA 06/27/2003 HYPERLIPIDEMIA 12/08/2004 History of atrial fibrillation 08/10/2006 Hypothyroidism 04/01/2009 History of heart attack 08/20/2009 [facility] 03/09/2013 Hyperglycemia 03/09/2013 History of breast cancer in female 08/25/2017 At[facility] with [facility]VR [facility] 09/22/2017 Atrophic vaginitis 05/28/2016 History of urinary tract infection 08/28/2015 Hypertensive disorder 03/19/2016 Orthostatic hypotension 09/22/2017 Urge incontinence of urine 07/15/2015 Resolved Ambulatory Problems Diagnosis Date Noted Thyrotoxicosis 10/16/2002 Sciatica 11/28/2000 BACK PAIN, LUMBAR 01/17/2004 Anisocoria 10/25/2011 Iritis 10/25/2011 Past Medical History: Diagnosis Date At[facility] 08/10/2006 Elevated blood pressure reading without diagnosis of hypertension 02/20/2009 Grave's disease Heart attack [facility] 08/20/2009 Hyperlipidemia 12/08/2004 Hypertension 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 Review of Systems: Constitutional: negative for fatigue, weight loss Eyes: negative for visual disturbance Ears, nose, mouth, throat, and face: negative for voice change, hoarseness Respiratory: negative for Cough, chest pain, dyspnea Cardiovascular: negative for palpitations, lower extremity swelling Gastrointestinal: negative for abdominal pain, change in bowel habits Genitourinary:negative for frequency Musculoskeletal:negative for muscle weakness Neurological: negative for headache, Behavioral/Psych: negative for behavioral problems, bipolar, depression Physical Exam: BP 128/74 (BP Location: left arm, Patient Position: Sitting, Cuff Size: large) | Pulse 64 | Resp 18 | Ht 5' 4" (1.626 m) | Wt 243 lb (110.2 kg) | LMP 03/13 | BMI 41.71 kg/m Const: No acute distress. Eyes:PERRLA. Conjugate gaze. No watering or icterus HEENT: Normal thyroid gland. No nodules. No lymphadenopathy. CVS: S1 S2 with no murmers . No rubs or gallops Resp: B/L Equal breath sounds.Clear to Auscultation. No wheezes or rhonchi Abd: Bowel sounds present, Non-tender, Non distended. No organomegaly Neuro: 5/5 Proximal Muscle strength. 2+ DTRs at biceps.CN grossly intact.Sensati ons intact Extremities: Trace B/L lower extremity pitting edema +. Psych: Normal affect and attention. Skin: Warm and pink, No rash Laboratory, Radiographic, Cytopathologic Data Ref. Range 10/12/2018 16:16 TSH REFLEX Latest Ref Range: 0.400 - 4.100 UIU/ML 2.640 FREE T4 Latest Ref Range: 0.80 - 1.90 NG/DL 1.54 Diagnoses/Plan Hypothyroidism: back on amiodarone since 09/2017. - continue LT4 100mcg daily for now. Has another repeat TFTs in a month with edelmira triana, if TSH continues to rise then might add half an extra pill on Tuesday bu t ok to hold course for now. Cleared for eye surgery coming up soon from my behalf. F/U 6 months Vanna Kline MD Endocrinology, Diabetes, and Metabolism [facility] documented in this encounter Plan of Treatment Care Team Description Date Type Specialty Antonio Amin MD [address] [facility], [address] [place] [address] 04/13/2019 Office Visit Endocrinology Health Maintenance Due Date Last Done Comments MEDICARE AWV 1945 BMI FOLLOW UP PLAN 08/25/2018 08/25/2017 FLU VACCINE > 6 MONTHS 01/11/2019 03/27/2018, 05/2018, 03/13/2017, Additional history exists MAMMOGRAM ANNUAL 03/24/2019 03/24/2018, 017, 02/27/2014, Additional history exists COLON CANCER SCREENIN09/01/2019 08/31/2018, COLONOSCOPY FALL SCREEN 01/23/2020 01/22/2019 TETANUS SHOT (ADULT) 08/19/2024 08/19/2014, 09/02 HEPATITIS C SCREENING Completed 03/08/2013 PNEUMOVAX >=65 (PPSV23) Completed 03/08/2013 OSTEOPOROSIS SCREENING Completed 04/05/2017 PREVNAR >= 65 (PCV13) Completed 06/16/2018, 09/2018 documented as of this encounter Results Not on filedocumented in this encounter Visit Diagnoses Diagnosis Hypothyroidism (acquired) - Primary Unspecified hypothyroidism documented in this encounter Insurance Type Payer Benefit Subscriber ID Effective Phone Address Plan / Dates Group Medicare MEDICARE MEDICARE xxxxxxxxxxx 2015-P [id number] [place] [address] [phone] [id number] [facility] (Home) [place] [address] documented as of this encounter
--- NOTE | 2019-11-19 21:55 | Emergency Department Note ---
History of Present Illnes History of Present Illness Chief Complaint: Laceration History of Present Illness This is a 74 year old female, with a history of chronic atrial fibrill ation on anticoagulation without Eloquis, hypertension, and hyperlipidemia, who accidentally dropped a glass bottle of Agustin Amasa, and the glass ricocheted up off of the floor and cut her on the mid, right, anterior tibial area and medial aspect of the left heel. This occurred approximately 1 hour prior to arrival, the patient came in because the wound on the right lower extremity continued to bleed, despite applying a pressure dressing. The patient denies any numbness or tingling of the right lower extremity or left foot. She also no foreign bodies present. Historian: Patient Arrival Mode: Car Additional Treatment PIZZA HUT ASSISTANT: pressure dressing National Business Director Required: No Onset (how long ago): hour(s) (1) Location: mid, right anterior tibial area and medial left heel Quality: minimal pain Radiation: non-radiation Severity: moderate Onset quality: sudden Duration (how long): hour(s) (1) Timing of current episode: constant Progression: unchanged Chronicity: new Context: other (patient has any recent illness, surgery, other trauma or injury, and no new medications,) Relieving factors: none Exacerbating factors: other (bleeding worsens when the dressing is changed) Associated symptoms: denies other symptoms Treatments prior to arrival: none Past Medical/Family History Physician Review I have reviewed the patient's past medical and family history. Any updates have been documented here. Past Medical History Recent Fever: No Clinical Suspicion of Infectio: No New/Unexplained Change in Ment: No Past Medical History: Hypertension, [place], A-Fib, Hypothyroidism Other Medical History: HIGH CHOLESTEROL, BRONCHITIS Past Surgical History: Knee Replacement, Lumpectomy, Cataract Removal Other Surgery: R-BREAST CA-LUMPECTOMY, CATARACS X2, AF-ABLATIONS X3, T&A, ON CPAP Social History Smoking Cessation: Never Smoker Alcohol Use: None Any Illegal Drug Use: No TB Exposure/Symptoms: No Physically hurt or threatened: No Family History Family history of heart diseas: No Other Last Tetanus: 1WK AGO Any Pre-Existing Lines (PICC,: No Is patient up to date on immun: Yes Last Flu: 03/31 Last Pneumovax: 2019 Review of Systems Review of Systems Constitutional: no symptoms EENTM: no symptoms Cardiovascular: no symptoms Respiratory: no symptoms Gastrointestinal: no symptoms Musculoskeletal: no symptoms Neurological: no symptoms Psychological: no symptoms Review of other systems All other systems reviewed and negative. Physical Exam Related Data Allergies: Coded Allergies: No Known Allergies (Unverified , 11/19/19) Triage Vital Signs Vital Signs Date Time Temp Pulse Resp B/P (MAP) Pulse Ox O2 Delivery O2 Flow Rate FiO2 11/19/19 18:45 98.4 65 18 152/74 98 Vital signs reviewed: Yes Physical Exam CONSTITUTIONAL Constitutional: well-developed, well-nourished, obese HENT HENT: normocephalic, atraumatic, oropharynx clear/moist, nose normal HENT L/R: left ext ear normal, right ext ear normal EYES Eyes: PERRL, conjunctivae normal NECK Neck: ROM normal PULMONARY Pulmonary: effort normal, breath sounds normal CARDIOVASCULAR Cardiovascular: regular rhythm, heart sounds normal, capillary refill normal, normal rate GASTROINTESTINAL Abdominal: soft, nontender, bowel sounds normal GENITOURINARY SKIN Skin: warm, dry, other (1.5 cm horizontal laceration with underlying hematoma that is oozing; superficial abrasion on the medial aspect of the left heel, no bleeding @ 5 cm long) MUSCULOSKELETAL Musculoskeletal: ROM normal NEUROLOGICAL Neurological: alert, oriented x 3, no gross motor or sensory deficits PSYCHOLOGICAL Psychological: mood/affect normal Procedures Laceration Laceration: Laceration 1 Site: lower extremity Side: right Size (cm): 1.5 Description: linear Depth: simple, single layer Local anesthesia: lidocaine 1%, with epi Amount of anesthesia (mL): 5 Pre-repair: wound exposed, irrigated extensively Skin layer closed with: nylon Size (cm): 3-0 Number of sutures: 3 Technique: simple, interrupted Additional comments Patient tolerated the procedure well, with no immediate complication. Critical Care Time Subsequent provider I assumed direction of critical care for this patient from another provider of my specialty. Assessment & Plan Assessment & Plan Final Impression: (1) Abrasion of left foot excluding toe (2) Laceration of right lower extremity excluding thigh (3) Chronic anticoagulation (4) Atrial fibrillation (5) Hypertension Assessment & Plan Keep the wound on the right lower leg clean and dry x 24 hours. Then, you may remove bandage and gently wash with antibacterial soap and water, pat or air dry, apply over the counter antibiotic ointment (such as Bacitracin, Triple Antibiotic Ointment, or Neosporin), and cover with a band-aid or bandage. Repeat this twice daily, until follow-up Follow-up in 10 days, for suture removal. Follow-up immediately for any signs of infection including, swelling or increased pain of the wound, redness and/or warmth around the wound or purulent drainage from the wound Depart Disposition: HOME, SELF-CARE ( goes in and 's everything except maybe in these were) Last Vital Signs Date Time Temp Pulse Resp B/P (MAP) Pulse Ox O2 Delivery O2 Flow Rate FiO2 11/19/19 18:45 98.4 65 18 152/74 98 Medications in the ED Bacitracin Zinc 0.9 gm DAILY TOP ; Start 11/20/19 at 09:00; Stop 11/27/19 at 08:59; Status UNV BLACK ERICKSON MD Nov 19, 2019 21:54
[2019-11-19 21:58] VITALS: BP 150/76
[2019-11-20] MEDS ORDERED: BACITRACIN ZINC 15 GM OINT TOP SCH (09:00)
== END 2019-11-19 21:56 | disposition home or self-care (01) ==
LOC: FSED 18:32
DX: S81.811A Laceration without foreign body, right lower leg, initial encounter (principal); S90.812A Abrasion, left foot, initial encounter; W25.XXXA Contact with sharp glass, initial encounter; Y92.008 Other place in unspecified non-institutional (private) residence as the place of occurrence of the external cause; D68.9 Coagulation defect, unspecified; I48.91 Unspecified atrial fibrillation; I10 Essential (primary) hypertension
CPT/HCPCS: 99283

== ENCOUNTER 2019-11-30 20:41 | Emergency (ER) | payer MEDICARE, OTHER ==
[~2019-11-30] VITALS: Ht 167.6 cm; Wt 113.4 kg
[2019-11-30 21:30] VITALS: BP 162/74
--- NOTE | 2019-11-30 21:30 | NUR ---
PER PT LEFT RIGHT AFTER HE REMOVED PT'S SUTURES. PT LEFT WITHOUT DC INST
--- NOTE | 2019-11-30 21:40 | Emergency Department Note ---
History of Present Illnes History of Present Illness Chief Complaint: Suture Removal FROM RGT FARIAS LACERATION History of Present Illness This is a 74 year old female. pt sustained laceration to rgt farias 11 days ago. + wound healed well. no complaints Historian: Patient Arrival Mode: Car History limited by: condition of the patient (NORMAL) Sugar Cane Planter Required: No Onset (how long ago): day(s) (11) Location: rgt farias Quality: n/a Radiation: Reports non-radiation Severity: mild Timing of current episode: constant Progression: unchanged Chronicity: chronic Relieving factors: none Exacerbating factors: none Associated symptoms: Reports denies other symptoms Treatments prior to arrival: none Past Medical/Family History Physician Review I have reviewed the patient's past medical and family history. Any updates have been documented here. Past Medical History Recent Fever: No Clinical Suspicion of Infectio: No New/Unexplained Change in Ment: No Past Medical History: Hypertension, [place], A-Fib, Hypothyroidism Other Medical History: HIGH CHOLESTEROL, BRONCHITIS Past Surgical History: Knee Replacement, Lumpectomy, Cataract Removal Other Surgery: R-BREAST CA-LUMPECTOMY, CATARACS X2, AF-ABLATIONS X3, T&A, ON CPAP Social History Smoking Cessation: Never Smoker Alcohol Use: None Any Illegal Drug Use: No TB Exposure/Symptoms: No Physically hurt or threatened: No Other Last Tetanus: 11/30 Any Pre-Existing Lines (PICC,: No Is patient up to date on immun: Yes Last Flu: 03/31 Last Pneumovax: UNK Review of Systems Review of Systems Constitutional: Reports no symptoms EENTM: Reports no symptoms Cardiovascular: Reports no symptoms Respiratory: Reports no symptoms Gastrointestinal: Reports no symptoms Genitourinary: Reports no symptoms Musculoskeletal: Reports no symptoms Integumentary: Reports no symptoms Neurological: Reports no symptoms Psychological: Reports no symptoms Endocrine: Reports no symptoms Hematological/Lymphatic: Reports no symptoms Physical Exam Related Data Allergies: Coded Allergies: No Known Allergies (Unverified , 11/19/19) Triage Vital Signs Vital Signs Date Time Temp Pulse Resp B/P (MAP) Pulse Ox O2 Delivery O2 Flow Rate FiO2 11/30/19 20:55 97.0 68 18 162/74 95 Vital signs reviewed: Yes Physical Exam CONSTITUTIONAL Constitutional: Present well-developed, Present well-nourished HENT HENT: Present normocephalic, Present atraumatic, Present oropharynx clear/moist, Present nose normal HENT L/R: Present left ext ear normal, Present right ext ear normal EYES Eyes: Reports PERRL, Reports conjunctivae normal NECK Neck: Present ROM normal, Present supple PULMONARY Pulmonary: Present effort normal, Present breath sounds normal CARDIOVASCULAR Cardiovascular: Present regular rhythm, Present heart sounds normal, Present capillary refill normal, Present normal rate GASTROINTESTINAL Abdominal: Present soft, Present nontender, Present bowel sounds normal GENITOURINARY Genitourinary: Present exam deferred SKIN Skin: Present warm, Present dry, Present other (3 sutures intact ) MUSCULOSKELETAL Musculoskeletal: Present ROM normal NEUROLOGICAL Neurological: Present alert, Present oriented x 3, Present no gross motor or sensory deficits PSYCHOLOGICAL Psychological: Present mood/affect normal, Present judgement normal Procedures Procedures Procedure: 3 (all) sutures removed from healed laceration on rgt farias. no complications Assessment & Plan Medical Decision Making MDM topical antibiotics and bandaid every 12 hours Assessment & Plan Final Impression: (1) Encounter for removal of sutures Depart Disposition: HOME, SELF-CARE Last Vital Signs Date Time Temp Pulse Resp B/P (MAP) Pulse Ox O2 Delivery O2 Flow Rate FiO2 11/30/19 20:55 97.0 68 18 162/74 95 DARIN KEBEDE Nov 30, 2019 21:40
== END 2019-11-30 21:30 | disposition home or self-care (01) ==
LOC: FSED 20:41
DX: Z48.02 Encounter for removal of sutures (principal); I10 Essential (primary) hypertension; I48.91 Unspecified atrial fibrillation; E03.9 Hypothyroidism, unspecified; I25.2 Old myocardial infarction
CPT/HCPCS: 99282

== ENCOUNTER → 2021-09-11 | Outpatient (CLI) | payer MEDICARE | LOC: CT 11:41 | PROVIDERS: ATTEND Physical Medicine & Rehabilitation | DX: M54.50 Low back pain, unspecified (principal); M53.3 Sacrococcygeal disorders, not elsewhere classified; G89.29 Other chronic pain | CPT/HCPCS: 72192 ==

== ENCOUNTER 2023-12-13 10:55 | Outpatient (RCR) | payer MEDICARE | END 2024-01-11 | LOC: PT 10:55 | PROVIDERS: ATTEND Physical Medicine & Rehabilitation | DX: M47.812 Spondylosis without myelopathy or radiculopathy, cervical region (principal); M53.82 Other specified dorsopathies, cervical region; M62.81 Muscle weakness (generalized) ==

== ENCOUNTER 2024-02-09 10:00 | Outpatient (RCR) | payer MEDICARE | END 2024-02-11 | LOC: PT 10:00 | PROVIDERS: ATTEND Physical Medicine & Rehabilitation | DX: M47.812 Spondylosis without myelopathy or radiculopathy, cervical region (principal); M62.81 Muscle weakness (generalized); M25.69 Stiffness of other specified joint, not elsewhere classified ==

== ENCOUNTER 2024-03-06 10:00 | Outpatient (RCR) | payer MEDICARE | END 2024-03-12 | LOC: PT 10:00 | PROVIDERS: ATTEND Physical Medicine & Rehabilitation | DX: M47.812 Spondylosis without myelopathy or radiculopathy, cervical region (principal); M53.82 Other specified dorsopathies, cervical region; M62.81 Muscle weakness (generalized) ==

== ENCOUNTER 2024-03-13 11:03 | Outpatient (RCR) | payer MEDICARE | END 2024-04-12 | LOC: PT 11:03 | PROVIDERS: ATTEND Physical Medicine & Rehabilitation | DX: M47.892 Other spondylosis, cervical region (principal) ==